=== PATIENT | male | born 1985 | race Caucasian/White ===

== ENCOUNTER 2017-01-07 08:57 | Emergency (ER) | payer SELFPAY ==
[~2017-01-07] VITALS: Ht 175.3 cm; Wt 68.0 kg
[2017-01-07 09:00] VITALS: BP 141/89
[2017-01-07] MEDS ORDERED: IBUPROFEN 400 MG TABLET ONE (09:17)
[2017-01-07] MEDS: IBUPROFEN 400 MG TABLET PO ONE (09:19)
== END 2017-01-07 10:04 | disposition home or self-care (01) ==
LOC: ER 08:57
DX: S52.131A Displaced fracture of neck of right radius, initial encounter for closed fracture (principal); S52.121A Displaced fracture of head of right radius, initial encounter for closed fracture; V00.131A Fall from skateboard, initial encounter; Y93.89 Activity, other specified; Y92.89 Other specified places as the place of occurrence of the external cause; Y99.8 Other external cause status
CPT/HCPCS: 73080-TC; 73110; A4606; Z7610